=== PATIENT | male | born 1970 | race Caucasian/White ===

== ENCOUNTER 2023-03-12 15:03 | Outpatient (CLI) | payer BC, SELFPAY | END 2023-03-12 15:04 | disposition home or self-care (01) | PROVIDERS: Visit Provider Family Medicine | DX: Z00.00 Encounter for general adult medical examination without abnormal findings (principal); R35.1 Nocturia; R35.89 Other polyuria; Z13.6 Encounter for screening for cardiovascular disorders; Z12.5 Encounter for screening for malignant neoplasm of prostate; Z11.59 Encounter for screening for other viral diseases | CPT/HCPCS: 80053; 80061; 84153; 86803 ==

== ENCOUNTER 2023-07-07 09:13 | Outpatient (CLI) | payer BC, SELFPAY | END 2023-07-07 09:14 | disposition home or self-care (01) | PROVIDERS: PCP Family Medicine; Visit Provider Family Medicine | DX: R41.0 Disorientation, unspecified (principal) | CPT/HCPCS: 84443 ==

== ENCOUNTER 2023-07-16 07:40 | Outpatient (CLI) | payer BC, SELFPAY ==
--- NOTE | 2023-07-16 08:15 | CRLHL7_ITS ---
For Patients: As a result of the Century Cures Act, medical imaging exams and procedure reports are released immediately into your electronic medical record. You may view this report before your referring provider. If you have questions, please contact your health care provider. INDICATION: Disorientation. TECHNIQUE: Multiplanar multisequence noncontrast MR images acquired through the brain. Comparison None. FINDINGS: Prominence of the ventricles and sulci compatible with mild diffuse cerebral volume loss. No mass effect or midline shift. Scattered FLAIR hyperintensities in the supratentorial white matter, typical for mild chronic microvascular ischemic changes. No intracranial hemorrhage or pathologic extra-axial fluid collection. No diffusion restriction to suggest acute infarction. The major arterial flow voids of the skullbase are preserved. The globes are symmetric. Mild left maxillary sinus mucosal thickening. Trace right mastoid fluid. IMPRESSION: 1. No acute infarction, mass effect, or intracranial hemorrhage. 2. Mild diffuse cerebral volume loss and chronic microvascular ischemic changes. Dictated by Varun Singh MD @ 07/16/2023 10:39:03 AM (Electronically Signed)
== END 2023-07-16 07:41 | disposition home or self-care (01) ==
LOC: MRI 07:43
PROVIDERS: PCP Family Medicine; Visit Provider Family Medicine
DX: R41.0 Disorientation, unspecified (principal); I67.82 Cerebral ischemia
CPT/HCPCS: 70551

== ENCOUNTER 2023-09-10 10:15 | Outpatient (CLI) | payer BC, SELFPAY | END 2023-09-10 10:16 | disposition home or self-care (01) | PROVIDERS: PCP Family Medicine; Visit Provider Family Medicine | DX: Z13.29 Encounter for screening for other suspected endocrine disorder (principal) | CPT/HCPCS: 82607; 84443 ==

== ENCOUNTER 2023-09-18 07:01 | Outpatient (CLI) | payer BC, SELFPAY ==
--- NOTE | 2023-09-18 07:15 | CRLHL7_ITS ---
For Patients: As a result of the Century Cures Act, medical imaging exams and procedure reports are released immediately into your electronic medical record. You may view this report before your referring provider. If you have questions, please contact your health care provider. INDICATION: Cognitive changes. TECHNIQUE: Brain MRI without contrast. The following sequences were obtained: Sagittal T1 weighted sequence. DWI and ADC mapping sequences. Axial FLAIR and CHARANJIT T2 weighted sequences. Susceptibility or GRE sequence. COMPARISON: Brain MRI from 07/16/2023. FINDINGS: No evidence of acute ischemia. No evidence of acute or chronic intracranial blood products. Scattered FLAIR hyperintensities within the supratentorial white matter, typical for chronic microvascular ischemic change. Mild generalized parenchymal volume loss. No mass effect or herniation. No hydrocephalus or extra-axial collections. The pituitary gland, parasellar structures and optic chiasm are normal. Posterior fossa is normal. All the major intracranial vascular structures demonstrate normal flow-related signal. The orbital contents are normal. No calvarial or skull base marrow replacing process. No obstructive sinus disease. No extracranial soft tissue findings. IMPRESSION: 1. No acute infarction or other acute intracranial pathology. 2. Mild chronic microvascular ischemic changes. Stable. 3. Mild generalized parenchymal volume loss. Stable. Dictated by Ozzy Pineda MD @ 09/18/2023 1:57:09 PM (Electronically Signed)
== END 2023-09-18 07:02 | disposition home or self-care (01) ==
LOC: MRI 07:03
PROVIDERS: PCP Family Medicine; Visit Provider Family Medicine
DX: R41.89 Other symptoms and signs involving cognitive functions and awareness (principal); I67.82 Cerebral ischemia; R41.0 Disorientation, unspecified; R41.844 Frontal lobe and executive function deficit
CPT/HCPCS: 70551